=== PATIENT | female | born 1995 | race Caucasian/White ===

== ENCOUNTER 2017-04-03 14:31 | Emergency (ER) | payer OTHER ==
--- NOTE | 2017-04-03 15:46 | EDM.PDOC ---
ED HPI GENERAL MEDICAL PROBLEM - General Chief Complaint: Lower Extremity Injury/Pain Stated Complaint: RT ANKLE INJURY Time Seen by Provider: 04/03/17 14:40 Source of Information: Reports: Patient History Limitations: Reports: No Limitations - History of Present Illness INITIAL COMMENTS - FREE TEXT/NARRATIVE: History of present illness: [] Patient is training for search and rescue currently and she states her boots are too large and her ankle has rolled during activities. Had 2 days of right ankle pain and swelling. His been wrapping icing resting but the pain continues. She denies any other injuries, numbness or tingling he is ambulatory with pain. Review of systems: As per history of present illness and below otherwise all systems reviewed and negative. Past medical history: As per history of present illness and as reviewed below otherwise noncontributory. Surgical history: As per history of present illness and as reviewed below otherwise noncontributory. Social history: No reported history of drug or alcohol abuse. Family history: As per history of present illness and as reviewed below otherwise noncontributory. Physical exam: General: Well developed, well nourished in NAD HEENT: Atraumatic, normocephalic, pupils reactive, negative for conjunctival pallor or scleral icterus, mucous membranes moist, throat clear, neck supple, nontender, trachea midline. Lungs: Clear to auscultation, breath sounds equal bilaterally, chest nontender. Heart: S1S2, regular, negative for clicks, rubs, or JVD. Abdomen: Soft, nondistended, nontender. Negative for masses or hepatosplenomegaly. Negative for costovertebral tenderness. Pelvis: Stable nontender. Genitourinary: Deferred. Rectal: Deferred. Extremities: Atraumatic, right ankle tender to palpation diffusely but worse posteriorly. There is no obvious deformity in minimal swelling removing an Chencho wrap. She has full range of motion and no tenderness along palpation of the Achilles tendon. negative for cords or calf pain. Neurovascular unremarkable. Neuro: Awake, alert, oriented. Cranial nerves II through XII unremarkable. Cerebellum unremarkable. Motor and sensory unremarkable throughout. Exam nonfocal. Diagnostics: [] X-ray negative for fracture Therapeutics: [] Impression: [] Right ankle sprain Plan: [] Increase hydration until urine is clear, ice, elevate and Motrin for pain continue wrapping ankle followup with PMD as needed Definitive disposition and diagnosis as appropriate pending reevaluation and review of above. Treatments COLLET MAKER: Reports: Other (see below) Other Treatments COLLET MAKER: CHENCHO wrap right ankle Pain Score (Numeric/FACES): 3 - Related Data Allergies Allergy/AdvReac Type Severity Reaction Status Date / Time No Known Allergies Allergy Verified 04/03/17 14:44 Home Meds: Home Meds . [No Known Home Meds] 04/03/17 [History] Past Medical History - Past Health History Medical/Surgical History: Denies Medical/Surgical History Social & Family History - Family History Family Medical History: Noncontributory - Tobacco Use Smoking Status *Q: Never Smoker - Caffeine Use Caffeine Use: Reports: None - Recreational Drug Use Recreational Drug Use: No Review of Systems - Review of Systems Review Of Systems: See Below (See history of present illness) Trauma Exam - Physical Exam Exam: See Below (See history of present illness) Course - Vital Signs Last Recorded V/S: Last Vital Signs Temp 36.9 C 04/03/17 14:46 Pulse 65 04/03/17 14:46 Resp 16 04/03/17 14:46 BP 117/65 04/03/17 14:46 Pulse Ox 96 04/03/17 14:46 - Orders/Labs/Meds Orders: Active Orders 24 hr Category Date Time Status Ankle Min 3V Rt [CR] Stat Exams 04/03/17 14:52 Taken Departure - Departure Time of Disposition: 15:45 Disposition: Home, Self-Care 01 Condition: good Clinical Impression: Right ankle sprain Qualifiers: Encounter type: initial encounter Involved ligament of ankle: unspecified ligament Qualified Code(s): S93.401A - Sprain of unspecified ligament of right ankle, initial encounter - Discharge Information Forms: ED Department Discharge Additional Instructions: The following information is given to patients seen in the emergency department who are being discharged to home. This information is to outline your options for follow-up care. We provide all patients seen in our emergency department with a follow-up referral. The need for follow-up, as well as the timing and circumstances, are variable depending upon the specifics of your emergency department visit. If you don't have a primary care physician on staff, we will provide you with a referral. We always advise you to contact your personal physician following an emergency department visit to inform them of the circumstance of the visit and for follow-up with them and/or the need for any referrals to a consulting specialist. The emergency department will also refer you to a specialist when appropriate. This referral assures that you have the opportunity for follow-up care with a specialist. All of these measure are taken in an effort to provide you with optimal care, which includes your follow-up. Under all circumstances we always encourage you to contact your private physician who remains a resource for coordinating your care. When calling for follow-up care, please make the office aware that this follow-up is from your recent emergency room visit. If for any reason you are refused follow-up, please contact the [facility] Emergency Department at and asked to speak to the emergency department charge nurse. Elevate, ice, Motrin for pain increase fluids [facility] [address] [place] [id number] - My Orders Last 24 Hours: My Active Orders 04/03/17 14:52 Ankle Min 3V Rt [CR] Stat - Assessment/Plan Last 24 Hours: My Active Orders 04/03/17 14:52 Ankle Min 3V Rt [CR] Stat
[2017-04-03 17:08] VITALS: BP 107/60
--- NOTE | 2017-04-06 13:29 | CR ---
EXAM DATE: 04/03/17 PATIENT'S AGE: 21 Patient: ALTON ANDERSON Facility: [place], [place] Site . Site : 1995 Study: XRay Extremity Right Ankle [id number]/12/2017 3:08:50 PM Ordering Physician: Benigno Romero Final Report: INDICATION: PAIN TECHNIQUE: Three views of the right ankle COMPARISON: None FINDINGS: Bones: No fractures or bone lesions. Joint spaces: Unremarkable. Soft tissues: Unremarkable. IMPRESSION: No acute bony abnormality. Dictated by Mack Strong MD @ 04/03/2017 3:35:21 PM Dictated by: Mack Strong MD @ 04/03/2017 15:35:36 (Electronic Signature) Report Signed by Proxy. AL[facility]DE MEDICAL CENTERDenny
== END 2017-04-03 16:10 | disposition home or self-care (01) ==
LOC: MW.ED 14:31
DX: S93.401A Sprain of unspecified ligament of right ankle, initial encounter (principal); X50.1XXA Overexertion from prolonged static or awkward postures, initial encounter; Y93.9 Activity, unspecified
CPT/HCPCS: 73610-26-RT; 73610-RT; 99282; 99283

== ENCOUNTER 2021-04-15 00:46 | Emergency (ER) | payer OTHER ==
[2021-04-15] MEDS ORDERED: Acetaminophen/oxyCODONE 325-10 MG Tab PO ONE (00:47)
--- NOTE | 2021-04-15 00:49 | EDM.PDOC ---
ED HPI GENERAL MEDICAL PROBLEM - General Chief Complaint: Upper Extremity Injury/Pain Stated Complaint: SPRAIN LEFT WRIST Time Seen by Provider: 04/15/21 00:47 Source of Information: Reports: Patient History Limitations: Reports: No Limitations - History of Present Illness INITIAL COMMENTS - FREE TEXT/NARRATIVE: 25-year-old female no relevant past medical history presents for injury to left wrist. 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 She notes pain in the left wrist and swelling. Denies any other injuries. Left Wrist Pain Score (Numeric/FACES): 6 - Related Data Allergies Allergy/AdvReac Type Severity Reaction Status Date / Time No Known Allergies Allergy Verified 04/15/21 00:56 Home Meds: Home Meds . [No Known Home Meds] 04/03/17 [History] Past Medical History - Past Health History Medical/Surgical History: Denies Medical/Surgical History Social & Family History - Family History Family Medical History: No Pertinent Family History - Caffeine Use Caffeine Use: Reports: None ED ROS GENERAL - Review of Systems Review Of Systems: Comprehensive ROS is negative, except as noted in HPI. ED EXAM, GENERAL - Physical Exam Exam: See Below Exam Limited By: No Limitations General Appearance: Alert, WD/WN, No Apparent Distress Throat/Mouth: Normal Voice, No Airway Compromise Head: Atraumatic, Normocephalic Neck: Normal Inspection Respiratory/Chest: No Respiratory Distress, No Accessory Muscle Use Cardiovascular: Normal Peripheral Pulses Extremities: Normal Inspection, Other (Preserved left therapy tech strength, tenderness to palpation of left dorsal wrist, no tenderness to palpation in the hand itself, normal radial pulse) Neurological: Alert Psychiatric: Normal Affect, Normal Mood Skin Exam: Warm, Dry, Intact, Normal Color Course - Vital Signs Last Recorded V/S: Last Vital Signs Temp 97.9 F 04/15/21 00:57 Pulse 68 04/15/21 00:57 Resp 18 04/15/21 00:57 BP 90/44 L 04/15/21 00:57 Pulse Ox 96 04/15/21 00:57 - Orders/Labs/Meds Orders: Active Orders 24 hr Category Date Time Status Chencho Bandage [RC] ONETIME Care 04/15/21 01:56 Active Meds: Medications Discontinued Medications Generic Name Dose Route Start Last Admin Trade Name Freq PRN Reason Stop Dose Admin Ibuprofen 600 mg 04/15/21 00:50 04/15/21 00:57 Ibuprofen 600 Mg Tab PO 04/15/21 00:51 600 mg ONETIME ONE Administration Oxycodone/Acetaminophen 1 tab 04/15/21 00:47 04/15/21 00:57 Acetaminophen/Oxycodone 325-10 Mg Tab PO 04/15/21 00:48 1 tab ONETIME ONE Administration - Re-Assessments/Exams Free Text/Narrative Re-Assessment/Exam: 04/15/21 00:48 We will treat pain symptomatically. Will get x-ray imaging of the left wrist to ensure no fracture. 04/15/21 01:59 X-ray imaging is unremarkable. Will discharge patient home with PMD versus orthopedic follow-up. Departure - Departure Time of Disposition: :59 Disposition: Home, Self-Care 01 Condition: Good Clinical Impression: Wrist sprain Qualifiers: Encounter type: initial encounter Laterality: left Qualified Code(s): S63.502A - Unspecified sprain of left wrist, initial encounter - Discharge Information Instructions: Wrist Sprain, Adult Referrals: PCP,None [Primary Care Provider] - Forms: ED Department Discharge Additional Instructions: The following information is given to patients seen in the emergency department who are being discharged to home. This information is to outline your options for follow-up care. We provide all patients seen in our emergency department with a follow-up referral. The need for follow-up, as well as the timing and circumstances, are variable depending upon the specifics of your emergency department visit. If you don't have a primary care physician on staff, we will provide you with a referral. We always advise you to contact your personal physician following an emergency department visit to inform them of the circumstance of the visit and for follow-up with them and/or the need for any referrals to a consulting specialist. The emergency department will also refer you to a specialist when appropriate. This referral assures that you have the opportunity for follow-up care with a specialist. All of these measure are taken in an effort to provide you with optimal care, which includes your follow-up. Under all circumstances we always encourage you to contact your private physician who remains a resource for coordinating your care. When calling for follow-up care, please make the office aware that this follow-up is from your recent emergency room visit. If for any reason you are refused follow-up, please contact the [facility] Emergency Department at and asked to speak to the emergency department charge nurse. Please follow up with your primary care physician. If you do not have a primary care physician, see below: [facility] [address] [place] [id number] [facility] [address] [place] [address] [facility] [address] [place] [id number] Sepsis Event Note (ED) - Focused Exam Vital Signs: Vital Signs Temp Pulse Resp BP Pulse Ox 04/15/21 00:57 97.9 F 68 18 90/44 L 96 - My Orders Last 24 Hours: My Active Orders 04/15/21 01:56 Chencho Bandage [RC] ONETIME - Assessment/Plan Last 24 Hours: My Active Orders 04/15/21 01:56 Chencho Bandage [RC] ONETIME
[2021-04-15] MEDS ORDERED: Ibuprofen 600 MG Tab PO ONE (00:50)
[2021-04-15 01:08] VITALS: BP 90/44
--- NOTE | 2021-04-15 01:52 | CR ---
Indication: Injury Technique: Three views of the left wrist Comparison: None available Findings/Impression: Bones: No acute fracture or dislocation. Small ovoid sclerotic foci in the scaphoid and base of the 3rd proximal phalanx suggestive of bone islands. Joint spaces: Unremarkable. Soft tissues: Unremarkable. Dictated by Reg Gaitan MD @ 04/15/2021 1:51:[address] Reg Gaitan @ Apr 15 2021 1:51AM
[2021-04-15 02:09] VITALS: PULSE 66
== END 2021-04-15 02:09 | disposition home or self-care (01) ==
LOC: MW.ED 00:46
DX: S63.502A Unspecified sprain of left wrist, initial encounter (principal); X50.9XXA Other and unspecified overexertion or strenuous movements or postures, initial encounter; Y99.0 Civilian activity done for income or pay
CPT/HCPCS: 73110; 99283; A9270; 99282